=== PATIENT | female | born 1950 | race Caucasian/White ===

== ENCOUNTER → 2019-05-07 17:59 | Outpatient (CLI) | payer OTHER, SELFPAY ==
[2013-10-03 08:19] VITALS: BMI 26.6
== END ==
PROVIDERS: Family Provider Family Medicine; PCP Family Medicine; Referring Provider Nurse Practitioner Adult Health; Visit Provider Nurse Practitioner Adult Health
DX: R82.998 Other abnormal findings in urine (principal)
CPT/HCPCS: 87086; 87088

== ENCOUNTER → 2019-08-22 08:20 | Outpatient (CLI) | payer SELFPAY ==
[2013-10-03 08:19] VITALS: BMI 26.6
--- NOTE | 2019-08-22 08:25 | RAD_ITS ---
STUDY: X-RAY - PELVIS REASON FOR EXAM: Female, 69 years old. FELL IN JUNE 2019. PAIN IN LEFT HIP AND DOWN FEMUR. TECHNIQUE: One view of the pelvis was obtained. COMPARISON: None. FINDINGS: There is a non-specific bowel gas pattern. Normal visualized soft tissue structures. Normal bilateral iliac wings, sacroiliac joints and visualized sacrum. Normal visualized bilateral superior and inferior pubic rami. Normal pubic symphysis. Normal ischial tuberosities. Normal visualized right femoral head. Normal right acetabulum. Normal right hip joint. Normal visualized left femoral head. Normal left acetabulum. Normal left hip joint. RAD/Pelvis 1 or 2 Views IMPRESSION: Normal x-ray examination of the pelvis. Electronically Signed: Kirk Delaney MD at 18:35 EST , Service support ,
--- NOTE | 2019-08-22 08:25 | RAD_ITS ---
STUDY: X-RAY - LEFT FEMUR REASON FOR STUDY: Female, 69 years old. FELL IN JUNE 2019. PAIN IN LEFT HIP AND DOWN FEMUR. TECHNIQUE: 5 view(s) of the femur. COMPARISON: None. FINDINGS: Normal visualized femur. Normal visualized soft tissue structure. RAD/Femur Min 2 Views IMPRESSION: Normal x-ray examination of the femur. Electronically Signed: Kirk Delaney MD at 17:17 EST , Service support ,
== END ==
PROVIDERS: Family Provider Family Medicine; PCP Family Medicine; Referring Provider Family Medicine; Visit Provider Family Medicine
DX: M79.652 Pain in left thigh (principal); W19.XXXA Unspecified fall, initial encounter
CPT/HCPCS: 72170; 73552

== ENCOUNTER 2019-10-08 09:30 | Outpatient (RCR) | payer SELFPAY ==
--- NOTE | 2019-09-24 09:56 | HP.PTEVAL_ITS ---
Patient's Visit Information DASHAWN JEAN BAPTISTE is a 69 year old F referred to Physical Therapy by Ewa Fowler, AZAR with a diagnosis of sciatica. Date of Evaluation: 09/24/19 Physical Therapist: Geovanny Young DPT, OCS, CSCS - Visit Plan Frequency: 2x /Week Duration: 4-6 Weeks Plan: 2x/week x 3-6 for ... 1. LB and L knee ROM, core and LE strength and progression to HEP, quad stretching. 2. NS strengthening and general movement exercises, gait. 3. May need STM for swelling to L LE with legs elevated - Subjective Findings: L leg was sore now it is just the knee. Sore since June. She fell a couple times but did not happen right after fall. Fell slipping on ice chunk at work. Was falling at home but changed meds and is now doing well. L knee swells and hurts. A little pain at rest anteriorly at knee. 08/17, when up and on it12/15. Had x rays and it showed no breaks. Sleeping OK but needs walker to get up at night. Uses wh walker and cannot get around without it. Steps at home and holds [employer]. 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 Enjoys empbroidering adn fixing books and can do those sitting down. Dresses slef and bathe and bath by self. Not cleaning alot due to pain. - Pain L knee Pain Intensity (Out of 10): 1 Pain Intensity Range: 1, 5 - Objective Short R step length adn needs two ASSEMBLER DC FIELD RING for short distances. WC to get back to PT room pushed by therapist. Mod A with gait. sLOW AND HESITANT TO MOVE l KNEE. Moves hip . AROM L knee 0-105 and R is 0-120, hsitant to move LAQ motion at first but then does well with it. Hip AROM WFL and without increased pain but weak. Ankle aROM WFL. Strength L knee ext 3 and flexion 4, R knee 4 flex and ext. hip strength 3+/5 B. ankles 4- B. LB AROM WFL and has some slight L knee pain with ext. - SLR adn - slump test. + L scour, - ant drawer and - varus valgus, + l bounce home test. reflexes 2/3 patella and achilles. Sensation LE WNL to gross light touch. - Goals Goal 1:: Pt feel 75% better with pain L knee 1/10 at worst Goal Time Frame: 4-6 Weeks Goal 2:: I appropr HEP to manage future problems Goal Time Frame: 4-6 Weeks Goal 3:: Pt able to walk without AD 20 feet mod I withotu increased pain. Goal Time Frame: 4-6 Weeks Goal 4:: Pt ready to return to work at [facility] [facility] [employer] Goal Time Frame: 4-6 Weeks - Rehabilitation Potential Physical Therapy Diagnosis: LBP vs knee degeneration/meniscus. Pt has gooten in habit of sitting around all day due to pain and is now tremendously out of shape strength william. Rehabilitation Potential: Fair - Anticipated Interventions Patient/Client Instruction: Educate patient on: Condition, Plan of Care For the Purpose of:: To decrease pain, To increase ROM, To improve muscle performance and motor function, To increase tolerance to activity/condition/position Therapeutic Exercise to Include: Strength training, Flexibilty training, Passive ROM, Active ROM, Dynamic Lumbar Stabilization For the Purpose of:: To decrease pain, To increase ROM, To improve muscle performance and motor function, To improve ability to perform ADL's, To increase tolerance to activity/condition/position, To improve ability of physical actions for home/community/work/leisure Manual Therapy Techniques to Include: Soft tissue mobilization For the Purpose of:: To decrease pain, To increase ROM Thank you for the opportunity to evaluate your patient. For Medicare and Medicare HMO plans, please review the plan of care and approve it. It will need to be FAXED BACK to us at [phone] for Medicare purposes. For Medicare only, by signing this I certify the plan of care. Please let me know if there are questions or concerns regarding this plan of care. Physician Signature: Date:
--- NOTE | 2019-12-05 15:04 | HP.PTDCNRP_ITS ---
DASHAWN JEAN BAPTISTE was seen in my office for initial evaluation on 09/24/19. The following Plan of Care was established for this patient: Initial Frequency: 2x /Week Initial Duration: 4-6 Weeks Patient/Client Instruction: Educate patient on: Condition, Plan of Care For the Purpose of:: To decrease pain, To increase ROM, To improve muscle performance and motor function, To increase tolerance to activity/condition/position Therapeutic Exercise to Include: Strength training, Flexibilty training, Passive ROM, Active ROM, Dynamic Lumbar Stabilization For the Purpose of:: To decrease pain, To increase ROM, To improve muscle performance and motor function, To improve ability to perform ADL's, To increase tolerance to activity/condition/position, To improve ability of physical actions for home/community/work/leisure Manual Therapy Techniques to Include: Soft tissue mobilization For the Purpose of:: To decrease pain, To increase ROM This patient was last seen in our office 10/08/19. Pertinent comments regarding their Physical therapy will appear below: Pt seen 4 visits of POC and was doing well being able to walk further at work. She did not attend any further visits. at this point, it has been 6 weeks and I will disocntinue her from my care due to nonattendance. At this point I will be discontinuing this patient from physical therapy. I wou ld be happy to see this patient again in the future if found appropriate by the physician. Thank you! Geovanny Young, DPT, OCS, CSCS
== END 2019-10-08 19:00 | disposition home or self-care (01) ==
LOC: PT 09:30
PROVIDERS: PCP Family Medicine; Visit Provider Registered Nurse
DX: M51.36 Other intervertebral disc degeneration, lumbar region (principal)
CPT/HCPCS: 97110; 97116; 97163

== ENCOUNTER → 2019-10-22 08:05 | Outpatient (CLI) | payer SELFPAY ==
--- NOTE | 2019-10-22 08:15 | MRI_ITS ---
STUDY: MRI BRAIN WITH AND WITHOUT CONTRAST REASON FOR EXAM: Female, 69 years old. frequent falls TECHNIQUE: Standardized multiplanar fat and water weighted pulse sequences were obtained. IV Yes YES was administered for the contrast portion of the examination. COMPARISON: None. FINDINGS: There is mild cerebral atrophy with widening of the extra-axial spaces and ventricular dilatation. There are multiple white matter hyperintensities, distributed throughout the deep white matter tracts of the cerebral hemispheres, consistent with moderate chronic white matter ischemic changes. Normal bilateral basal ganglia. Normal thalami. There is no extra-axial fluid accumulation. Normal flow voids within the major intracranial circulation suggesting patency by spin echo criteria. Normal venous enhancement. There is no enhancing intra-axial or extra-axial abnormality. Normal sella turcica, pituitary gland, infundibular stalk, optic chiasm and hypothalamus. Normal tectal plate and pineal gland. Normal midbrain, kenton and medulla. Normal cerebellum. Normal basal cisterns. Normal bilateral temporal bones. MRI/Brain W/WO Contrast IMPRESSION: No acute intracranial abnormality or masses. Mild chronic microvascular ischemic changes.. Electronically Signed: Aline Nieves MD at 13:22 EDT Tel , Service support ,
[2019-10-22 09:06] LABS: CREATININE FINGERSTICK < 0.6 mg/dL (0.55-1.02); EGFR FINGERSTICK > 60.0000 mL/min (>60)
== END ==
PROVIDERS: PCP Family Medicine; Referring Provider Family Medicine; Visit Provider Family Medicine
DX: R29.6 Repeated falls (principal)
CPT/HCPCS: 70553; A9575